=== PATIENT | female | born 1955 | race Caucasian/White ===

== ENCOUNTER → 2019-04-30 | Outpatient (CLI) | payer OTHER ==
[~2019-04-30] VITALS: Ht 165.1 cm; Wt 56.7 kg
[~2019-04-30] MED LIST: CARVEDILOL25 MG PO; CYMBALTA60 MG PO; MULTIVITAMIN PO; ORTHO-TABS1 EACH PO
--- NOTE | 2019-05-05 12:06 | PATH ---
[facility] [address] [place] [address] PATHOLOGY RPT PROCEDURE Name: WILIAN LEMOS Vale Room #: REG ARABELLA Jacque.#: [id number] Admission: 04/30/19 Date of : 51 Discharge: Report #: [id number] Path Case #: [id number] [facility] Accession Number: [id number] . 01 Material submitted: . colon - RANDOM COLON BIOPSY R/O COLITIS . 01 Clinical history: . Change in bowel habits R/O colitis . 02 Diagnosis: Large intestine mucosa, random colon to rule out colitis, endoscopic biopsy: - Nonspecific reactive changes with apoptotic bodies and hyperplastic changes. - Pigmented macrophages within lamina propria, compatible with melanosis coli. - Negative for active cryptitis. - Negative for microscopic colitis. - Negative for dysplasia or malignancy. (IUV:luca; 05/04/2019) MBR 05/05/2019 1057 Local . 02 Comment: Findings are suggestive of either a resolved episode of colitis or bowel preparation. Changes to suggest active colitis, ongoing colitis, or microscopic colitis are not identified. Please correlate clinically. (IUV:lime trimmer; 05/04/2019) . 02 Electronically signed: . Mariana Maya MD, Pathologist NPI- [id number] . 01 Gross description: . Received in formalin labeled "Wilian Lemos, random colon Bx R/O colitis," are multiple segments of hendrickson-brown soft tissue measuring 1.2 x 0.8 x 0.2 cm in aggregate dimensions and ranging from 0.2 to 0.4 cm in maximum dimension. The specimen is submitted entirely in cassette A1. (DAC; 05/01/2019) XDC/XDC 05/01/2019 1142 Local . 02 Pathologist provided ICD-10: K63.9 . 02 CPT . 812019 [place] [address] PATHOLOGY RPT PROCEDURE Name: COLE LEMOSKAITLYN Collazo Room #: REG CLI LyndsayPepeNathaliePepe#: [id number] Admission: 04/30/19 Date of : 51 Discharge: Report #: [id number] Path Case #: [id number] Specimen Comment: A courtesy copy of this report has been sent to [phone] Specimen Comment: Report sent to Performed at: 01 [facility] [place] [address], [place], [place] [id number] MD Juan Diego Garcias MD Phone: [phone] Performed at: [address], [place], [place] [id number] MD Mariana Maya MD Phone: [phone]
--- NOTE | 2019-05-12 13:15 | P ---
[facility] [place] [address] [address] [place] [address] PROCEDURE REPORT Name: NIEVESWILIAN D Room #: REG [facility]#: [id number] Admission: 04/30/19 Attend Phys: Greg Chandler MD Discharge: Date of : 51 Report #: [id number] THIS REPORT FOR: //name// CC: Greg Padilla DO DATE OF SERVICE: 04/30/2019 OUTPATIENT COLONOSCOPY BRIEF HISTORY: The patient is a 63-year-old woman, last colonoscopy was in 2006. She is recently noted change in bowel habits. She is having increasing stool frequency since December. Some days, she will have as many as 7-8 stools. They are not watery, but loosely formed. PREOPERATIVE DIAGNOSIS: Change in bowel habits. POSTOPERATIVE DIAGNOSIS: Normal colonoscopy. MEDICATIONS: Deep sedation with propofol per anesthesia. SPECIMEN: Random biopsies colon, rule out colitis. ESTIMATED BLOOD LOSS: 3 mL. PROCEDURE: Colonoscopy to cecum and terminal ileum with biopsy. FINDINGS: Prior to propofol sedation, procedure of colonoscopy was discussed with the patient as well as potential risks and its complications. She indicates she understands and desires to proceed. DESCRIPTION OF PROCEDURE: With the patient in left lateral decubitus position, digital examination was completed, which revealed no abnormalities. Subsequently, the Olympus video colonoscope was introduced in the rectum, advanced under direct vision to the cecum. Cecum was identified by the ileocecal valve and the appendiceal orifice. I was able to visualize the distal segment of terminal ileum, which was inspected and noted to be unremarkable. At that point, the scope was slowly withdrawn and careful circumferential views were obtained including retroflexion of the scope in the ascending colon. Upon slow withdrawal of the scope, the prep was excellent. The mucosa was within normal limits, normal vascular pattern, normal light reflex. As we withdrew the scope, no inflammatory or neoplastic changes were seen. She had normal colonic mucosa throughout the entire colon. Due to complaints of change in bowel habits, multiple rectal biopsies were obtained to evaluate for microscopic inflammatory changes. Scope was withdrawn in the rectum, no abnormalities were [address] [address] PROCEDURE REPORT Name: WILIAN NIEVES Room #: REG ARABELLA Santillan.#: [id number] Admission: 04/30/19 Attend Phys: Greg Chandler MD Discharge: Date of : 51 Report #: [id number] seen. Upon retroflexion, no abnormalities were seen. Scope was withdrawn. The patient tolerated the procedure well. CONDITION OF THE PATIENT UPON DISCHARGE: Following procedure, the patient drowsy, aroused, conversant and will be discharged home when fully ambulatory. INSTRUCTIONS TO THE PATIENT AND FAMILY AT THE TIME OF DISCHARGE: We will follow up on the pathology. We will make further recommendations after review of the pathology. Also, I suggest the patient to have a celiac screen since there has been a change in bowel habits. She may use Imodium as needed. If symptoms persist, she will return for followup in the office for further evaluation and treatment as needed. For screening purposes, she should return in 10 years for average risk screening colonoscopy. Withdrawal time from the cecum was 12 minutes 34 seconds. <ELECTRONICALLY SIGNED> By: Greg Chandler MD 05/12/19 1315 1028 [id number] Greg Chandler MD /nt
== END | disposition home or self-care (01) ==
LOC: GI 08:39
DX: R19.4 Change in bowel habit (principal); K63.9 Disease of intestine, unspecified; I10 Essential (primary) hypertension; F32.9 Major depressive disorder, single episode, unspecified; Z96.653 Presence of artificial knee joint, bilateral; Z98.890 Other specified postprocedural states; Z79.899 Other long term (current) drug therapy
CPT/HCPCS: 62110; 62900